=== PATIENT | female | born 1965 | race Caucasian/White ===

== ENCOUNTER 2024-09-10 10:56 | Day surgery (SDC) | payer OTHER, SELFPAY ==
--- NOTE | 2024-09-10 | PATH_ITS ---
[facility] Accession Number: [id number] No. of containers..01 Tissue . 01 Material submitted: . gastrointestinal site - GASTRIC . 01 Diagnosis: STOMACH, BIOPSY: Gastric body mucosa with no diagnostic abnormality. No evidence of Helicobacter organisms on H/E stain. Negative for intestinal metaplasia. Negative for dysplasia or malignancy. MRV 09/11/2024 1740 Local . 01 Electronically signed: . Reed Song MD, PhD, Pathologist NPI- [id number] . 01 Gross description: . GASTRIC: Received in formalin is 1 fragment(s) of coronel, soft tissue measuring 0.2 x 0.2 x 0.2 cm submitted entirely in 1 cassette(s) /CORY 09/11/2024 0139 Local . 01 Pathologist provided ICD-10: R13.10 . 01 CPT . 455012 Specimen Comment: A courtesy copy of this report has been sent to [phone] Performed at: [address] [facility] [address], [place], [place] [id number] MD Stevie Guzman MD Phone: [phone]
[2024-09-10] MEDS: LACTATED RINGERS 1,000 ML 100 ML IV (11:18)
[2024-09-10 11:20] VITALS: BP 152/80; PULSE 58; RESP 16; TEMP 36.4; O2SAT 99
--- NOTE | 2024-09-10 11:52 | PM.HP.IH.1 ---
History of Present Illness History of Present Illness Date Patient Seen: 09/10/24 Chief complaint: EGD w/poss bx Narrative: History of lower substernal dysphagia on the background of significant GE reflux PFSH Social History Smoking Status: Former smoker alcohol intake: current Meds Home Medications and Allergies Home Medications Medication Instructions Recorded Confirmed Type pantoprazole 40 mg tablet,delayed 40 mg PO DAILY 08/28/24 08/28/24 History release sertraline 50 mg tablet 50 mg PO DAILY 08/28/24 08/28/24 History Allergies Allergy/AdvReac Type Severity Reaction Status Date / Time No Known Drug Allergies Allergy Verified 09/10/24 11:02 Exam Vital Signs (past 8 hours): - 09/10/24 11:20 Temperature 97.6 F Pulse Rate 58 L Respiratory Rate 16 Blood Pressure 152/80 H Pulse Oximetry 99 Oxygen Delivery Method Room Air Oxygen Delivery Method Room Air Narrative Exam Narrative: Oropharynx free of lesions Chest clear to auscultation percussion Cardiac exam reveals no S3 or murmur Assessment & Plan Assessment & Plan narrative: GE reflux with dysphagia need for upper endoscopy and possible dilation. Risks, benefits, alternatives have been explained. Time-Based Coding :: [TOTAL MINUTES] spent with patient and on the chart (including review of chart, obtaining history, exam, reviewing outside data, placing orders, documenting exam and treatment plan, and counseling patient) on [DATE]. [employer] Engineer Document charge(s): No
--- NOTE | 2024-09-10 11:53 | PM.OP.EGD ---
Operative Date/Time/Diagnoses Date of procedure: 09/10/24 Pre-op diagnosis: See indication and findings Procedure & Clinicians Study performed: EGD Same procedure as scheduled: Yes Indications: GE reflux with dysphagia Surgeon: Giuseppe Roblero Procedure Notes Procedure in detail: After informed consent was obtained the patient was placed in left lateral decubitus position. The video upper scope was placed into the oropharynx and with the patient's help swallowed into the esophagus. The esophagus stomach duodenal were carefully examined. On withdrawal, retroflexed view the GE junction was performed. The scope was removed. The patient tolerated the procedure well. Blood loss none Complications none Sedation mac Findings EGD 1.
[2024-09-10 12:49] VITALS: BP 122/71; PULSE 60; RESP 17; TEMP 36.3; O2SAT 93
[2024-09-10 12:53] VITALS: BP 125/77; PULSE 53; RESP 16; O2SAT 96
[2024-09-10 12:58] VITALS: BP 131/81; PULSE 53; RESP 12; TEMP 36.5; O2SAT 94
[2024-09-10 13:03] VITALS: BP 138/83; PULSE 53; RESP 12; O2SAT 93
--- NOTE | 2024-09-10 14:00 | P.OP.EGD_ITS ---
Operative Date/Time/Diagnoses Date of procedure: 09/10/24 Pre-op diagnosis: See indication and findings Procedure & Clinicians Study performed: EGD and esophageal dilation Same procedure as scheduled: Yes Indications: Lower substernal dysphagia and history of GE reflux Procedure Notes Procedure in detail: After informed consent was obtained the patient was placed in left lateral decubitus position. The video EGD scope was placed into the oropharynx and with the patient's help swallowed into the esophagus. The esophagus stomach and duodenal were carefully examined. On withdrawal retroflexed view the GE junction was performed. The scope was removed. The patient tolerated procedure well. Blood loss none Complications none Sedation mac Findings 1. Esophagus essentially normal throughout its length with the exception of the GE junction. Here, best seen on retroflexed view, there was a mild Schatzki's ring. This was dilated easily up to [address] [place] [address]. 2. Mid body stomach with intense erythema/inflammation in a streaky pattern. Biopsies taken to rule out H pylori or even watermelon stomach 3. Normal duodenal bulb and sweep Patient will follow up with me by telephone to discuss her dysphagia. She will follow up with primary care to discuss how well her pantoprazole is working
== END 2024-09-10 13:52 | disposition home or self-care (01) ==
PROVIDERS: PCP Nurse Practitioner Family; Referring Provider Internal Medicine Gastroenterology; Visit Provider Internal Medicine Gastroenterology
PROC: 0DJ08ZZ Inspection of Upper Intestinal Tract, Via Natural or Artificial Opening Endoscopic (ICD-10-PCS; CPT 43239; principal; 2024-09-10 12:30)
DX: R13.10 Dysphagia, unspecified (principal); K22.2 Esophageal obstruction
CPT/HCPCS: 43239; 43248; J2704